=== PATIENT | male | born 1965 | race Two or more races ===

== ENCOUNTER 2019-07-08 10:29 | Outpatient (CLI) | payer OTHER | END 2019-07-08 10:45 | disposition home or self-care (01) | LOC: MRI 10:29 | DX: N28.89 Other specified disorders of kidney and ureter (principal) | CPT/HCPCS: 74183 ==

== ENCOUNTER 2019-07-31 09:06 | Outpatient (CLI) | payer OTHER | END 2019-07-31 09:07 | disposition home or self-care (01) | LOC: TOM 09:06 | DX: C64.2 Malignant neoplasm of left kidney, except renal pelvis (principal) ==

== ENCOUNTER → 2019-08-06 | Outpatient (CLI) | payer OTHER | END | disposition home or self-care (01) | LOC: NUCLEAR 09:39 | DX: C64.2 Malignant neoplasm of left kidney, except renal pelvis (principal) | CPT/HCPCS: 78708; A9539; J1940 ==

== ENCOUNTER 2020-03-04 08:53 | Outpatient (CLI) | payer OTHER | END 2020-03-04 09:13 | disposition home or self-care (01) | LOC: MRI 08:53 | DX: D49.2 Neoplasm of unspecified behavior of bone, soft tissue, and skin (principal) | CPT/HCPCS: 73718 ==

== ENCOUNTER 2020-09-08 09:30 | Outpatient (CLI) | payer OTHER | END 2020-09-08 09:59 | disposition home or self-care (01) | LOC: MRI 09:30 → RAD 09:30 → MRI 09:59 | PROVIDERS: ATTEND Urology | DX: R07.89 Other chest pain (principal); C64.2 Malignant neoplasm of left kidney, except renal pelvis ==

== ENCOUNTER 2020-09-09 10:40 | Outpatient (CLI) | payer OTHER | END 2020-09-09 10:57 | disposition home or self-care (01) | LOC: TOM 10:40 | PROVIDERS: ATTEND Urology | DX: C64.2 Malignant neoplasm of left kidney, except renal pelvis (principal) ==

== ENCOUNTER 2021-01-27 10:14 | Outpatient (CLI) | payer OTHER | END 2021-01-27 10:36 | disposition home or self-care (01) | LOC: TOM 10:14 | DX: M72.2 Plantar fascial fibromatosis (principal); R10.84 Generalized abdominal pain; D49.2 Neoplasm of unspecified behavior of bone, soft tissue, and skin; M76.62 Achilles tendinitis, left leg; M76.61 Achilles tendinitis, right leg | CPT/HCPCS: 73718 ==